=== PATIENT | female | born 1995 | race Caucasian/White ===

== ENCOUNTER 2023-09-15 01:18 | Emergency (ER) | payer MEDICAID ==
[2023-09-15] MEDS ORDERED: TETANUS/DIPHTHERIA/PERTUSSIS 0.5 ML SYRINGE IM ONE (01:37)
[2023-09-15] MEDS ORDERED: AMOX/CLAV 875 MG/125 MG TABLET PO STA (01:37)
[2023-09-15 01:44] VITALS: BP 110/96; O2SAT 100
--- NOTE | 2023-09-15 02:48 | ED Physician Documentation ---
History of Present Illness - Stated complaint Stated Complaint: LT ARM/ RT THUMB DOG BITES - Chief complaint Chief Complaint: Wound - Additonal information Additional information: Patient 27-year-old female presenting to the emergency department with dog bite to herLeft forearm and right hand. Reports was trying to break up a fight between 2 animals. Identified these as her neighbors dogs. Reports that they are unvaccinated. States that they got into a fight over a third dog who is recently gone and heat. Unknown last tetanus. Review of Systems Constitutional: denies: Fever Eyes: denies: Loss of vision Ears: denies: Loss of hearing Nose: denies: Rhinorrhea / runny nose Throat: denies: Dental pain / toothache Cardiac: denies: Chest pain / pressure Respiratory: denies: Dyspnea PD PAST MEDICAL HISTORY - Past Medical History Past Medical History: No - Past Surgical History Past Surgical History: No - Present Medications Home Medications: Ambulatory Orders Medication Instructions Recorded Confirmed Amox/Clav 875/125 [Augmentin] 1 tab PO Q12H #20 tablet 09/15/23 Bacitracin Zinc Oint 1 applic TOP BID #1 each 09/15/23 - Allergies Allergies/Adverse Reactions: Allergies Allergy/AdvReac Type Severity Reaction Status Date / Time bee venom protein (honey bee) Allergy Hives Verified 09/15/23 01:54 - Social History Does the pt smoke?: Yes Smoking Status: Current every day smoker PD ED PE NORMAL - Vitals Vital signs reviewed: Yes (Low level tachycardia) - General General: Alert and oriented X 3, Other (Appears older than stated age) - HEENT HEENT: Other (Multiple areas of excoriation on the face and upper arms.) - Neck Neck: Supple, no meningeal sign - Cardiac Cardiac: RRR - Respiratory Respiratory: No respiratory distress - Abdomen Abdomen: Normal bowel sounds - Female Female : Deferred - Rectal Rectal: Deferred - Extremities Extremities: Other (Notable puncture wound on the dorsum of the left forearm. Additionally there are 2 notable puncture wounds on the inner aspect of the left elbow. Patient has full and complete range of motion. Radial and ulnar pulses palpable. Normal capillary refill. There is also superficial abrasion on the u) Results - Vitals Vitals: Vital Signs - 24 hr 09/15/23 01:32 Heart Rate 112 H Respiratory 17 Rate Blood Pressure 110/96 H O2 Saturation 100 Oxygen O2 Source Room air PD Medical Decision Making - ED course Complexity details: reviewed results, re-evaluated patient, d/w patient ED course: Patient 27-year-old female presenting with superficial puncture wounds to her left arm as well as an abrasion to the ulnar aspect of her right thumb that occurred while trying to separate 2 fighting dogs earlier today. Afebrile, hemodynamically stable. No indications arterial injury and she is otherwise neurovascularly intact in her affected extremities. Wounds extensively cleaned in the emergency department. Tetanus updated. Initiated course Augmentin. X-rays negative for fracture or retained foreign body. Given that the animals are unvaccinated she was given contact information for local area animal control for seizure and monitoring as needed. Will discharge on ongoing course of Augmentin with prescription for topical bacitracin and instructions for wound care. Departure - Departure Disposition: 01 Home, Self Care Clinical Impression: Animal bite with open wound Instructions: ED Wound Care, Bites Scratches Animal Prescriptions: Amox/Clav 875/125 [Augmentin] 1 tab PO Q12H #20 tablet Bacitracin Zinc Oint 1 applic TOP BID #1 each Comments: Thank you for allowing us to care for you today at [facility]. Prescription sent electronically to [facility] in [place]. Today in the emergency department you were treated for multiple puncture wounds in your upper extremities. Please be aware that given that these are bites and scratches associated with an animal they do have increased risk for infection. To that and have sent a prescription for an oral antibiotic as well as topical antibiotic ointment to your preferred pharmacy. You will need to change your dressings once daily. I recommend twice daily application of the topical antibiotic ointment. Please continue to take the oral antibiotics until they have been completed. Please monitor the area very carefully for any signs of infection. Below you will find contact information for would be animal control, please contact them Tomorrow to file report. If it anytime you have new or worsening symptoms Or if you develop any symptoms concerning for infection such as increased swelling, pain, heat, redness or purulent drainageplease not hesitate to return. [facility] animal control: To report a barking problem or other animal related complaint or to speak with the [employer], please call the non-emergency [employer] line at . Complaints are handled 24 hours a day.
--- NOTE | 2023-09-15 07:55 | XRAY Report ---
PROCEDURE: Elbow 3 View LT INDICATIONS: Dog bite, puncture wound TECHNIQUE: 3 views of the elbow were acquired. COMPARISON: None. FINDINGS: Bones: No fractures or dislocations. No suspicious bony lesions. Soft tissues: No effusion. No suspicious soft tissue calcifications or masses. IMPRESSION: No acute bony abnormality. Findings are concordant with preliminary interpretation provided by [facility]. Reviewed by: Jose Alberto MD on 09/15/2023 7:53 AM [facility] Approved by: Jose Alberto MD on 09/15/2023 7:53 AM PST Station ID: [id number]
--- NOTE | 2023-09-15 08:55 | XRAY Report ---
PROCEDURE: Forearm LT INDICATIONS: Dog bite, puncture wound TECHNIQUE: 2 views of the forearm were acquired. COMPARISON: None. FINDINGS: Bones: No fractures or dislocations. No suspicious bony lesions. Soft tissues: No suspicious soft tissue calcifications or masses. IMPRESSION: No acute bony abnormality. No radiopaque foreign bodies. Findings are concordant with preliminary interpretation provided by [facility]. Reviewed by: Jose Alberto MD on 09/15/2023 8:53 AM PST Approved by: Jose Alberto MD on 09/15/2023 8:53 AM PST Station ID: [id number]
== END 2023-09-15 03:20 | disposition home or self-care (01) ==
LOC: ED 01:18
DX: S51.832A Puncture wound without foreign body of left forearm, initial encounter (principal); S60.311A Abrasion of right thumb, initial encounter; S00.81XA Abrasion of other part of head, initial encounter; S40.812A Abrasion of left upper arm, initial encounter; S40.811A Abrasion of right upper arm, initial encounter; S51.032A Puncture wound without foreign body of left elbow, initial encounter; W54.0XXA Bitten by dog, initial encounter; Y93.K9 Activity, other involving animal care; F17.200 Nicotine dependence, unspecified, uncomplicated
CPT/HCPCS: 73080; 73090; 90471; 90715; 99283; 99284; A9270